=== PATIENT | male | born 1940 | race American Indian/Alaskan Native ===

== ENCOUNTER 2016-12-31 11:20 | Outpatient (CLI) | payer MEDICARE, OTHER ==
--- NOTE | 2016-12-31 12:01 | XRay Report ---
ROUTINE CHEST, TWO VIEWS: Cough. PA and lateral views demonstrate the heart and mediastinal contour to be of normal size and shape. The lungs are clear and fully expanded and the soft tissues and bony structures are normal. IMPRESSION: Normal study.
== END 2016-12-31 11:21 | disposition home or self-care (01) ==
LOC: SPVIMAG 11:20
DX: R05 Cough (principal)
CPT/HCPCS: 71020

== ENCOUNTER 2021-11-13 12:44 | Outpatient (CLI) | payer MEDICARE ==
--- NOTE | 2021-11-13 15:04 | Magnetic Resonance Report ---
. MRI LEFT SHOULDER WITHOUT CONTRAST INDICATION / CLINICAL INFORMATION: M25.512 PAIN IN LEFT SHOULDER. TECHNIQUE: Multiplanar, multisequence MR images were obtained. No contrast used. COMPARISON: None available. FINDINGS: ACROMION and A.C. JOINT: No significant abnormality. SUBACROMIAL/SUBDELTOID SPACE: Mild bursal fluid. SUPRASPINATUS: Tendinosis. INFRASPINATUS: Tendinosis with articular surface fraying distally. SUBSCAPULARIS: Tendinosis with partial articular surface tear through the superior fibers. BICEPS TENDON, LONG HEAD: No significant abnormality. GLENOID LABRUM: There is circumferential degenerative tearing of the labrum. ARTICULAR CARTILAGE: There is full-thickness cartilage loss along the superior articular surface of t he humeral head. Advanced cartilage thinning is noted throughout the remainder. JOINT SPACE AND CAPSULE: There is thickening of the capsule. Intermediate signal is noted in the rota tor cuff interval. BONES: Mild subcortical cystic changes are seen at the greater and lesser tuberosities. No fracture. No osseous lesion. SOFT TISSUES: No significant abnormality. ADDITIONAL FINDINGS: None. IMPRESSION: 1. High-grade articular surface tear superior fibers distal subscapularis tendon. No full-thickness c uff tear or muscle atrophy. 2. Glenohumeral DJD with advanced cartilage loss, joint space narrowing, and diffuse degenerative tea ring of the glenoid labrum. 3. Thickening of the glenohumeral ligaments with intermediate signal in the rotator cuff interval can be seen in the setting of adhesive capsulitis. Signer Name: Jackson Mcneal MD Signed: 11/13/2021 2:59 PM Workstation Name: [id number]
== END 2021-11-13 12:45 | disposition home or self-care (01) ==
LOC: MRI 12:44
PROVIDERS: ATTEND Orthopaedic Surgery
DX: S46.912A Strain of unspecified muscle, fascia and tendon at shoulder and upper arm level, left arm, initial encounter (principal); M19.012 Primary osteoarthritis, left shoulder; X58.XXXA Exposure to other specified factors, initial encounter; Y93.9 Activity, unspecified; Y92.89 Other specified places as the place of occurrence of the external cause; Y99.8 Other external cause status